=== PATIENT | female | born 1995 | race Caucasian/White ===

== ENCOUNTER 2017-05-25 14:33 | Emergency (ER) | payer OTHER ==
[2017-05-25 14:44] VITALS: BMI 32.2
--- NOTE | 2017-05-25 15:39 | PDOC ---
History of Present Illness - General Chief Complaint: Vaginal Bleeding Stated Complaint: VAGINAL BLEEDING (8 WEEKS ) Time Seen by Provider: 05/25/17 15:28 - History of Present Illness Initial Comments: 05/25/17 15:38 Ms. Torres is a 21 yo female w/ no pmh who presents complaining of a 1 day history of vaginal bleeding. She reports she is approximately 7 weeks and has had cramping throughout her . Yesterday she noticed some small spotting and today when she urinated she noticed significant blood while wiping and also scant drops in the toilet. She believes she became while switching from one set of OCP's to another although she is unsure of the names of either. The patient denies chest pain, shortness of breath, headache and dizziness. Denies fever, chills, nausea, vomit, diarrhea and constipation. Denies dysuria, frequency, urgency and hematuria. Allergies: NKDA Past History - Past Medical History Allergies/Adverse Reactions: Allergies Allergy/AdvReac Type Severity Reaction Status Date / Time No Known Allergies Allergy Verified 05/25/17 14:41 Home Medications: Ambulatory Orders Clotrimazole 1 applic TP DAILY #1 bottle 05/25/17 Vit No.129/Iron/Folic [ One Daily Tablet] 1 each PO DAILY 05/25 COPD: No Other medical history: DENIES. - Suicide/Smoking/Psychosocial Hx Smoking History: Never smoked Review of Systems - Review of Systems Comments:: 05/25/17 15:38 GENERAL/CONSTITUTIONAL: No fever or chills. No weakness. HEAD, EYES, EARS, NOSE AND THROAT: No change in vision. No ear pain or discharge. No sore throat. CARDIOVASCULAR: No chest pain or shortness of breath RESPIRATORY: No cough, wheezing, or hemoptysis. GASTROINTESTINAL: No nausea, vomiting, diarrhea or constipation. GENITOURINARY: No dysuria, frequency, or change in urination. MUSCULOSKELETAL: No joint or muscle swelling or pain. No neck or back pain. SKIN: No rash NEUROLOGIC: No headache, vertigo, loss of consciousness, or change in strength/ sensation. ENDOCRINE: No increased thirst. No abnormal weight change HEMATOLOGIC/LYMPHATIC: No anemia, easy bleeding, or history of blood clots. ALLERGIC/IMMUNOLOGIC: No hives or skin allergy. : Bleeding as described. *Physical Exam - Vital Signs Last Vital Signs Temp Pulse Resp BP Pulse Ox 98 F 100 H 19 131/68 98 05/25/17 14:41 05/25/17 14:41 05/25/17 14:41 05/25/17 14:41 05/25/17 14:41 - Physical Exam Comments: 05/25/17 15:39 GENERAL: Awake, alert, and fully oriented, in no acute distress HEAD: No signs of trauma, normocephalic, atraumatic EYES: PERRLA, EOMI, sclera anicteric, conjunctiva clear ENT: Auricles normal inspection, hearing grossly normal, nares patent, oropharynx clear without exudates. Moist mucosa NECK: Normal ROM, supple, no lymphadenopathy, JVD, or masses LUNGS: No distress, speaks full sentences, clear to auscultation bilaterally HEART: Regular rate and rhythm, normal S1 and S2, no murmurs, rubs or gallops, peripheral pulses normal and equal bilaterally. ABDOMEN: Soft, nontender, normoactive bowel sounds. No guarding, no rebound. No masses EXTREMITIES: Normal inspection, Normal range of motion, no edema. No clubbing or cyanosis. NEUROLOGICAL: Cranial nerves II through XII grossly intact. Normal speech, normal gait, no focal sensorimotor deficits SKIN: Warm, Dry, normal turgor, no rashes or lesions noted. : Blood noted in vaginal vault. Closed os. No CMT. Right adnexal tenderness. No masses. Cottage chees exudate noted. ED Treatment Course - LABORATORY CBC & Chemistry Diagram: 05/25/17 17:00 Medical Decision Making - Medical Decision Making 05/25/17 19:03 Ms. Brian Calderon is a 21 yo female w/ pmh as described who presents for evaluation of spotting while . Transvaginal US denotes 6w 4day fetus, IUP. No acute process identified. Patient noted to be A positive so no rhogam required. Labs grossly unconcerning as below. Threatened . Discharging w / instructions to f/u with [facility] later this week for further evaluation. Patient verbalized understanding and agreement and will comply. Laboratory Results - last 24 hr 05/25/17 05/25/17 05/25/17 17:00 17:00 17:00 WBC 5.2 RBC 4.77 Hgb 14.9 Hct 43.6 MCV 91.5 MCH 31.2 MCHC 34.1 RDW 14.3 Plt Count 275 MPV 7.4 L Neutrophils % 49.9 Lymphocytes % 36.9 Monocytes % 11.3 H Eosinophils % 1.2 Basophils % 0.7 Beta HCG, Quant 2703.0 Urine Color Urine Appearance Urine pH Ur Specific [place] Urine Protein Urine Glucose (UA) Urine Ketones Urine Blood Urine Nitrite Urine Bilirubin Urine Urobilinogen Ur Leukocyte Esterase Urine WBC (Auto) Urine RBC (Auto) Ur Epithelial Cells Urine Mucus Blood Type A POSITIVE Antibody Screen Negative 05/25/17 17:20 WBC RBC Hgb Hct MCV MCH MCHC RDW Plt Count MPV Neutrophils % Lymphocytes % Monocytes % Eosinophils % Basophils % Beta HCG, Quant Urine Color Yellow Urine Appearance Slcloudy Urine pH 6.0 Ur Specific [place] 1.019 Urine Protein Negative Urine Glucose (UA) Negative Urine Ketones Negative Urine Blood 2+ H Urine Nitrite Negative Urine Bilirubin Negative Urine Urobilinogen Negative Ur Leukocyte Esterase Negative Urine WBC (Auto) <1 Urine RBC (Auto) None Ur Epithelial Cells Few Urine Mucus Rare Blood Type Antibody Screen *DC/Admit/Observation/Transfer Diagnosis at time of Disposition: Threatened - Discharge Dispostion Disposition: HOME - Prescriptions Prescriptions: Clotrimazole 1 applic TP DAILY #1 bottle - Referrals Referrals: Kathryn Sanderson [Primary Care Provider] - - Patient Instructions Printed Discharge Instructions: DI for Threatened Additional Instructions: Please return if any pain, fever, chills, uncontrollable bleeding, or other concerning symptoms. Follow-up with [facility] later this week as discussed for further evaluation. - Post Discharge Activity Forms/Work/School Notes: Back to Work
--- NOTE | 2017-05-25 16:20 | PDOC ---
Attending Attestation - Resident Resident Name: Chester Fuentes - ED Attending Attestation I have performed the following: I have examined & evaluated the patient, The case was reviewed & discussed with the resident, I agree w/resident's findings & plan - HPI HPI: 05/25/17 16:17 21-year-old female LMP about 8 weeks presents with vaginal spotting since yesterday and increased bleeding with clots today. No cramping or pain, had ultrasound very early in that was reportedly not definitive. - Physicial Exam PE: 05/25/17 16:18 HD stable ambulating and well appearing abd soft/nt pelvic per resident note - Medical Decision Making 05/25/17 16:19 21y/o F with first trimester vaginal bleeding. threatened ab v ectopic. cbc, t+s, rh TVUS reassess
[2017-05-25 17:12] LABS: BASO % 0.7 % (0-2.0); EOS % 1.2 % (0-4.5); HEMATOCRIT 43.6 % (32.4-45.2); HEMOGLOBIN 14.9 GM/dL (10.7-15.3); LYMPH % 36.9 % (8-40); MCH 31.2 pg (25.7-33.7); MCHC 34.1 g/dl (32.0-36.0); MEAN CELL VOLUME 91.5 fl (80-96); MEAN PLT VOLUME 7.4 fl (7.5-11.1); MONO % 11.3 % (3.8-10.2); NEUT % 49.9 % (42.8-82.8); PLATELET COUNT 275 K/MM3 (134-434); RBC 4.77 M/mm3 (3.60-5.2); RDW 14.3 % (11.6-15.6); WHITE BLOOD COUNT 5.2 K/mm3 (4.0-10.0)
[2017-05-25 17:28] LABS: URINE APPEARANCE SLCLOUDY; URINE BILIRUBIN NEGATIVE (<2.0 mg/dL); URINE BLOOD 2+ (NEGATIVE); URINE COLOR YELLOW; URINE GLUCOSE (UA) NEGATIVE (NEGATIVE); URINE KETONE NEGATIVE (NEGATIVE); URINE LEUK ESTERASE NEGATIVE (NEGATIVE); URINE NITRITE NEGATIVE (NEGATIVE); URINE PROTEIN NEGATIVE (NEGATIVE); URINE UROBILINOGEN NEGATIVE mg/dL (0.2-1.0)
[2017-05-25 17:41] LABS: EPI CELLS FEW /HPF (FEW); URINE MUCUS RARE
[2017-05-25 18:58] VITALS: BP 139/77; PULSE 89; TEMP 97.8
== END 2017-05-25 19:25 | disposition home or self-care (01) ==
LOC: JER 14:33
DX: O26.891 Other specified pregnancy related conditions, first trimester (principal); O20.0 Threatened abortion; Z3A.01 Less than 8 weeks gestation of pregnancy
CPT/HCPCS: 36415; 76817-TC; 81003; 81015; 84702; 85025; 86850; 86900; 86901; 99281-25

== ENCOUNTER 2020-07-23 14:33 | Emergency (ER) | payer OTHER ==
[2020-07-23 14:52] VITALS: BP 119/80; PULSE 86; BMI 31.8
[2020-07-23] MEDS ORDERED: SODIUM CHLORIDE 1,000 ML IV STA (15:25)
[2020-07-23] MEDS ORDERED: FAMOTIDINE 20 MG/50 ML IVPB 20 MG/50 ML MG IVPB ONE ×2 (15:39→16:09)
[2020-07-23 16:03] LABS: BASO % 0.6 % (0-2.0); EOS % 1.1 % (0-4.5); HEMATOCRIT 41.2 % (32.4-45.2); HEMOGLOBIN 13.9 GM/dL (10.7-15.3); LYMPH % 19.6 % (8-40); MCH 31.5 pg (25.7-33.7); MCHC 33.7 g/dl (32.0-36.0); MEAN CELL VOLUME 93.4 fl (80-96); MEAN PLT VOLUME 7.7 fl (7.5-11.1); MONO % 8.6 % (3.8-10.2); NEUT % 70.1 % (42.8-82.8); PLATELET COUNT 257 10^3/uL (134-434); RBC 4.41 M/mm3 (3.60-5.2); RDW 14.6 % (11.6-15.6); URINE APPEARANCE CLEAR; URINE BILIRUBIN NEGATIVE (NEGATIVE); URINE COLOR YELLOW; URINE GLUCOSE (UA) NEGATIVE (NEGATIVE); URINE KETONE NEGATIVE (NEGATIVE); URINE LEUK ESTERASE NEGATIVE (NEGATIVE); URINE NITRITE NEGATIVE (NEGATIVE); URINE PROTEIN NEGATIVE (NEGATIVE); URINE UROBILINOGEN 0.2 mg/dL (0.2-1.0); WHITE BLOOD COUNT 9.3 K/mm3 (4.0-10.0)
[2020-07-23 16:24] LABS: ALBUMIN 4.1 g/dl (3.4-5.0); CALCIUM 9.2 mg/dL (8.5-10.1)
[2020-07-23 16:28] LABS: CREATININE 0.7 mg/dL (0.55-1.3)
[2020-07-23 16:29] LABS: BILIRUBIN,TOTAL 0.3 mg/dL (0.2-1); TOT PROT 7.4 g/dl (6.4-8.2)
== END 2020-07-23 18:10 | disposition home or self-care (01) ==
LOC: JER 14:33
PROC: 3E033GC Introduction of Other Therapeutic Substance into Peripheral Vein, Percutaneous Approach (ICD-10-PCS; principal; 2020-07-23)
PROC: 3E0337Z Introduction of Electrolytic and Water Balance Substance into Peripheral Vein, Percutaneous Approach (ICD-10-PCS; 2020-07-23)
DX: O21.9 Vomiting of pregnancy, unspecified (principal); B37.3 Candidiasis of vulva and vagina; K52.9 Noninfective gastroenteritis and colitis, unspecified; Z3A.01 Less than 8 weeks gestation of pregnancy
CPT/HCPCS: 36415; 76817-TC; 80053; 81003; 84702; 85025; 87070; 87086; 87205; 87491; 87591; 87661; 99284-25

== ENCOUNTER 2020-07-26 10:17 | Emergency (ER) | payer OTHER ==
[2020-07-26 10:47] VITALS: BMI 26.6
[2020-07-26] MEDS ORDERED: SODIUM CHLORIDE 1,000 ML IV STA (11:41)
[2020-07-26] MEDS ORDERED: AZITHROMYCIN 500 MG TABLET PO ONE (11:41)
[2020-07-26] MEDS ORDERED: ACETAMINOPHEN 1000 MG/100 ML VIAL (NON FORMULARY) IVPB ONE (11:41)
[2020-07-26] MEDS ORDERED: AZITHROMYCIN 250 MG TABLET ONE (12:29)
[2020-07-26] MEDS ORDERED: ACETAMINOPHEN INJECTION 100 ML IVPB ONE (12:29)
[2020-07-26 12:55] LABS: BASO % 0.7 % (0-2.0); EOS % 2.3 % (0-4.5); HEMATOCRIT 41.9 % (32.4-45.2); HEMOGLOBIN 14.3 GM/dL (10.7-15.3); LYMPH % 18.2 % (8-40); MCH 31.8 pg (25.7-33.7); MCHC 34.1 g/dl (32.0-36.0); MEAN CELL VOLUME 93.3 fl (80-96); MEAN PLT VOLUME 8.2 fl (7.5-11.1); MONO % 9.1 % (3.8-10.2); NEUT % 69.7 % (42.8-82.8); PLATELET COUNT 263 10^3/uL (134-434); RBC 4.49 M/mm3 (3.60-5.2); RDW 14.3 % (11.6-15.6); WHITE BLOOD COUNT 9.1 K/mm3 (4.0-10.0)
[2020-07-26 13:02] LABS: PH,URINE 5.5 (5.0-8.0); URINE APPEARANCE CLEAR; URINE BILIRUBIN NEGATIVE (NEGATIVE); URINE COLOR YELLOW; URINE GLUCOSE (UA) NEGATIVE (NEGATIVE); URINE KETONE TRACE (NEGATIVE); URINE LEUK ESTERASE NEGATIVE (NEGATIVE); URINE NITRITE NEGATIVE (NEGATIVE); URINE PROTEIN NEGATIVE (NEGATIVE); URINE UROBILINOGEN 0.2 mg/dL (0.2-1.0)
[2020-07-26 13:08] LABS: CALCIUM 9.7 mg/dL (8.5-10.1)
[2020-07-26 13:09] LABS: ALBUMIN 4.1 g/dl (3.4-5.0); BLOOD UREA NITROGEN 10.5 mg/dL (7-18)
[2020-07-26 13:12] LABS: CREATININE 0.5 mg/dL (0.55-1.3)
[2020-07-26 13:13] LABS: BILIRUBIN,TOTAL 0.4 mg/dL (0.2-1); TOT PROT 7.4 g/dl (6.4-8.2)
[2020-07-26 14:39] VITALS: BP 138/74; PULSE 84; TEMP 97.9
== END 2020-07-26 14:40 | disposition home or self-care (01) ==
LOC: JER 10:17
PROC: 3E0337Z Introduction of Electrolytic and Water Balance Substance into Peripheral Vein, Percutaneous Approach (ICD-10-PCS; principal; 2020-07-26)
DX: N83.209 Unspecified ovarian cyst, unspecified side (principal); A56.11 Chlamydial female pelvic inflammatory disease; Z3A.01 Less than 8 weeks gestation of pregnancy
CPT/HCPCS: 36415; 76817-TC; 80053; 81003; 84702; 85025; 86850; 86900; 86901; 87086; 99284-25

== ENCOUNTER 2022-07-03 00:19 | Emergency (ER) | payer OTHER ==
[2022-07-03 00:30] VITALS: BP 123/84; PULSE 76; RESP 18; TEMP 98; BMI 35.2
[2022-07-03] MEDS ORDERED: LACTATED RINGERS SOLUTION 1000 ML INFUS.BAG IV ONE (01:08)
[2022-07-03] MEDS ORDERED: FAMOTIDINE 20 MG/50 ML IVPB 20 MG/50 ML MG IVPB ONE ×2 (01:08→01:13)
[2022-07-03] MEDS ORDERED: ONDANSETRON 4 MG/2 ML VIAL IVPUSH ONE (01:08)
[2022-07-03] MEDS ORDERED: ONDANSETRON 4 MG/2 ML VIAL ONE (01:12)
[2022-07-03 01:41] LABS: BASO % 0.5 % (0-2.0); EOS % 0.3 % (0-4.5); HEMATOCRIT 41.7 % (32.4-45.2); HEMOGLOBIN 14.1 GM/dL (10.7-15.3); LYMPH % 17.6 % (8-40); MCH 30.3 pg (25.7-33.7); MCHC 33.8 g/dl (32.0-36.0); MEAN CELL VOLUME 89.7 fl (80-96); MEAN PLT VOLUME 7.6 fl (7.5-11.1); MONO % 6.4 % (3.8-10.2); NEUT % 75.2 % (42.8-82.8); PLATELET COUNT 288 10^3/uL (134-434); RBC 4.64 M/mm3 (3.60-5.2); RDW 14.8 % (11.6-15.6)
[2022-07-03 01:46] LABS: URINE APPEARANCE CLEAR; URINE BILIRUBIN NEGATIVE (NEGATIVE); URINE COLOR YELLOW; URINE GLUCOSE (UA) NEGATIVE (NEGATIVE); URINE KETONE 3+ (NEGATIVE); URINE LEUK ESTERASE NEGATIVE (NEGATIVE); URINE NITRITE NEGATIVE (NEGATIVE); URINE PROTEIN NEGATIVE (NEGATIVE); URINE UROBILINOGEN 0.2 mg/dL (0.2-1.0)
[2022-07-03 01:55] LABS: INR 1.1 (0.83-1.09); PROTHROMBIN TIME (PATIENT) 12.8 SEC (9.7-13.0)
[2022-07-03 01:57] LABS: ACTIVATED PTT 36.4 SECONDS (25.2-36.5)
[2022-07-03 01:59] LABS: POTASSIUM 3.8 mmol/L (3.5-5.1)
[2022-07-03 02:01] LABS: CALCIUM 9.4 mg/dL (8.5-10.1)
[2022-07-03 02:02] LABS: ALBUMIN 4.1 g/dl (3.4-5.0); BLOOD UREA NITROGEN 9.5 mg/dL (7-18); MAGNESIUM 2.1 mg/dL (1.8-2.4)
[2022-07-03 02:05] LABS: CREATININE 0.5 mg/dL (0.55-1.3)
[2022-07-03 02:07] LABS: BILIRUBIN,TOTAL 0.3 mg/dL (0.2-1); TOT PROT 7.7 g/dl (6.4-8.2)
== END 2022-07-03 04:26 | disposition home or self-care (01) ==
LOC: JER 00:19
PROC: 3E033GC Introduction of Other Therapeutic Substance into Peripheral Vein, Percutaneous Approach (ICD-10-PCS; principal; 2022-07-03)
PROC: 3E033GC Introduction of Other Therapeutic Substance into Peripheral Vein, Percutaneous Approach (ICD-10-PCS; 2022-07-03)
DX: O21.9 Vomiting of pregnancy, unspecified (principal); Z3A.01 Less than 8 weeks gestation of pregnancy; Z20.822 Contact with and (suspected) exposure to COVID-19
CPT/HCPCS: 0241U-QW; 36415; 76817-TC; 80053; 81003; 83690; 83735; 84702; 85025; 85610; 85730; 86850; 86900; 86901; 87086; 93005; 93010; 99285-25

== ENCOUNTER 2022-07-31 12:00 | Emergency (ER) | payer OTHER ==
[2022-07-31 12:11] VITALS: BP 125/83; PULSE 98; RESP 18; TEMP 98; BMI 35.1
[2022-07-31 13:32] LABS: BASO % 0.5 % (0-2.0); EOS % 0.8 % (0-4.5); HEMATOCRIT 41.2 % (32.4-45.2); HEMOGLOBIN 13.6 GM/dL (10.7-15.3); MCH 30.2 pg (25.7-33.7); MCHC 33.1 g/dl (32.0-36.0); MEAN CELL VOLUME 91.3 fl (80-96); MEAN PLT VOLUME 7.7 fl (7.5-11.1); MONO % 8.6 % (3.8-10.2); NEUT % 73.1 % (42.8-82.8); PLATELET COUNT 303 10^3/uL (134-434); RBC 4.51 M/mm3 (3.60-5.2); RDW 14.5 % (11.6-15.6)
[2022-07-31 13:40] LABS: INR 1.09 (0.83-1.09); PROTHROMBIN TIME (PATIENT) 12.6 SEC (9.7-13.0)
[2022-07-31 13:43] LABS: ACTIVATED PTT 33.9 SECONDS (25.2-36.5)
[2022-07-31 14:03] LABS: URINE APPEARANCE CLEAR; URINE BILIRUBIN NEGATIVE (NEGATIVE); URINE COLOR YELLOW; URINE GLUCOSE (UA) NEGATIVE (NEGATIVE); URINE KETONE NEGATIVE (NEGATIVE); URINE LEUK ESTERASE NEGATIVE (NEGATIVE); URINE NITRITE NEGATIVE (NEGATIVE); URINE PROTEIN NEGATIVE (NEGATIVE); URINE UROBILINOGEN 0.2 mg/dL (0.2-1.0)
[2022-07-31 14:45] LABS: POTASSIUM 4.3 mmol/L (3.5-5.1)
[2022-07-31 14:50] LABS: CALCIUM 9.1 mg/dL (8.5-10.1)
[2022-07-31 14:51] LABS: ALBUMIN 3.5 g/dl (3.4-5.0); BLOOD UREA NITROGEN 8.5 mg/dL (7-18)
[2022-07-31 14:53] LABS: BILIRUBIN,TOTAL 0.3 mg/dL (0.2-1)
[2022-07-31 14:55] LABS: TOT PROT 7.2 g/dl (6.4-8.2)
[2022-07-31 14:58] LABS: CREATININE 0.4 mg/dL (0.55-1.3)
== END 2022-07-31 17:54 | disposition home or self-care (01) ==
LOC: JER 12:00
DX: O20.0 Threatened abortion (principal); M54.9 Dorsalgia, unspecified; L02.621 Furuncle of right foot; L02.622 Furuncle of left foot
CPT/HCPCS: 36415; 76817-TC; 80053; 81003; 84702; 85025; 85610; 85730; 86850; 86900; 86901; 99284-25

== ENCOUNTER 2022-09-27 15:48 | Emergency (ER) | payer OTHER ==
[2022-09-27 16:00] VITALS: BP 141/80; PULSE 122; RESP 20; TEMP 98.3; BMI 37.2
[2022-09-27] MEDS ORDERED: ALBUTEROL SO4 0.083% IH SOL 2.5 MG/3 ML VIAL.NEB. NEB ONE ×2 (16:39→17:01)
[2022-09-27 18:06] LABS: EPI CELLS 36 /uL (0-25.1); HYALINE CASTS 1 /uL (0-3.1); URINE APPEARANCE CLEAR; URINE BACTERIA 636 /uL (0-1359); URINE BILIRUBIN NEGATIVE (NEGATIVE); URINE COLOR YELLOW; URINE GLUCOSE (UA) NEGATIVE (NEGATIVE); URINE KETONE 2+ (NEGATIVE); URINE LEUK ESTERASE 1+ (NEGATIVE); URINE NITRITE NEGATIVE (NEGATIVE); URINE PROTEIN NEGATIVE (NEGATIVE); URINE RBC 13 /uL (0-23.9); URINE UROBILINOGEN 0.2 mg/dL (0.2-1.0); URINE WBC 125 /uL (0-25.8)
[2022-09-27 18:07] LABS: BASO % 0.5 % (0-2.0); EOS % 1.7 % (0-4.5); HEMATOCRIT 38.3 % (32.4-45.2); LYMPH % 15.4 % (8-40); MCH 30.8 pg (25.7-33.7); MCHC 33.9 g/dl (32.0-36.0); MEAN CELL VOLUME 90.9 fl (80-96); MEAN PLT VOLUME 8.1 fl (7.5-11.1); NEUT % 77.4 % (42.8-82.8); PLATELET COUNT 313 10^3/uL (134-434); RBC 4.22 M/mm3 (3.60-5.2); RDW 14.3 % (11.6-15.6); WHITE BLOOD COUNT 10.8 K/mm3 (4.0-10.0)
[2022-09-27 18:25] LABS: POTASSIUM 4.2 mmol/L (3.5-5.1)
[2022-09-27 18:27] LABS: CALCIUM 9.5 mg/dL (8.5-10.1)
[2022-09-27 18:28] LABS: ALBUMIN 3.3 g/dl (3.4-5.0); BLOOD UREA NITROGEN 7.2 mg/dL (7-18)
[2022-09-27 18:31] LABS: CREATININE 0.5 mg/dL (0.55-1.3)
[2022-09-27 18:33] LABS: BILIRUBIN,TOTAL 0.2 mg/dL (0.2-1); TOT PROT 6.8 g/dl (6.4-8.2)
== END 2022-09-27 20:32 | disposition home or self-care (01) ==
LOC: JERFT 15:48 → JER 15:48 → JERFT 20:32
PROC: 3E0F7GC Introduction of Other Therapeutic Substance into Respiratory Tract, Via Natural or Artificial Opening (ICD-10-PCS; principal; 2022-09-27)
DX: O26.811 Pregnancy related exhaustion and fatigue, first trimester (principal); T73.3XXD Exhaustion due to excessive exertion, subsequent encounter; Z3A.08 8 weeks gestation of pregnancy; Z20.822 Contact with and (suspected) exposure to COVID-19
CPT/HCPCS: 0241U-QW; 36415; 80053; 81003; 85025; 87086; 93005; 93010; 99284-25

== ENCOUNTER 2022-10-27 18:21 | Emergency (ER) | payer OTHER ==
[2022-10-27 18:32] VITALS: TEMP 97.9; BMI 37.2
[2022-10-27 21:34] LABS: EPI CELLS >36 /uL (0-25.1); HYALINE CASTS 0 /uL (0-3.1); URINE APPEARANCE CLEAR; URINE BACTERIA 363 /uL (0-1359); URINE BILIRUBIN NEGATIVE (NEGATIVE); URINE COLOR YELLOW; URINE GLUCOSE (UA) NEGATIVE (NEGATIVE); URINE KETONE NEGATIVE (NEGATIVE); URINE LEUK ESTERASE TRACE (NEGATIVE); URINE NITRITE NEGATIVE (NEGATIVE); URINE PROTEIN NEGATIVE (NEGATIVE); URINE RBC 6 /uL (0-23.9); URINE UROBILINOGEN 0.2 mg/dL (0.2-1.0); URINE WBC 16 /uL (0-25.8)
[2022-10-28 00:26] VITALS: BP 125/69; RESP 18
[2022-10-28 01:37] VITALS: PULSE 95
== END 2022-10-28 01:22 | disposition home or self-care (01) ==
LOC: JER 18:21
DX: O99.612 Diseases of the digestive system complicating pregnancy, second trimester (principal); Z3A.23 23 weeks gestation of pregnancy; Z20.822 Contact with and (suspected) exposure to COVID-19
CPT/HCPCS: 0241U-QW; 81003; 87086; 99283-25